=== PATIENT | male | born 1965 ===

== ENCOUNTER 2018-06-18 09:44 | Day surgery (SDC) | payer MEDICARE ==
[2018-02-25 18:39] VITALS: BMI 31.8
--- NOTE | 2018-06-18 11:06 | CP.SDSHP ---
Same Day Surgery H & P - History Proposed Procedure: colonoscopy Pre-Op Diagnosis: screening - Previous Medical/Surgical History Comments: HIV - Allergies Allergies: Allergies ciprofloxacin [From Cipro] Allergy (Verified 06/18/18 10:09) RASH ciprofloxacin HCl [From Cipro] Allergy (Verified 06/18/18 10:09) RASH Sulfa (Sulfonamide Antibiotics) Allergy (Verified 06/18/18 10:09) RASH - Physical Exam General Appearance: NAD Vital Signs: Vital Signs 06/18/18 10:00 Temperature 97.8 F Pulse Rate 58 L Respiratory 16 Rate Blood Pressure 139/86 O2 Sat by Pulse 97 Oximetry Mental Status: Alert & Oriented x3 Neuro: WNL Heart: WNL Lungs: WNL GI: WNL - {Optional Preform as Required} Abdomen: WNL - Impression Pt. Evaluated Today:Candidate for Anesthesia & Procedure: Yes - Date & Time Date: 06/18/18 Time: 11:05 Short Stay Discharge - Short Stay Discharge Admitting Diagnosis/Reason for Visit: SCREENING Disposition: HOME/ ROUTINE
[2018-06-18] MEDS ORDERED: Midazolam 2 MG/2 ML VIAL ONE (11:14)
[2018-06-18] MEDS ORDERED: Propofol 10 mg/ml Inj (20 ML) ONE (11:15)
[2018-06-18] MEDS ORDERED: Lactated Ringer's 500 ML IV ONE (11:45)
[2018-06-18 12:10] VITALS: TEMP 97.6
[2018-06-18 12:16] VITALS: O2SAT 100
[2018-06-18 15:09] VITALS: BP 135/67; PULSE 62; RESP 13
== END 2018-06-18 15:05 | disposition home or self-care (01) ==
LOC: C.ENDO 09:44
PROVIDERS: ATTEND Internal Medicine Gastroenterology
DX: Z12.11 Encounter for screening for malignant neoplasm of colon (principal); D12.4 Benign neoplasm of descending colon; D12.3 Benign neoplasm of transverse colon
CPT/HCPCS: 45380; 88305; J2250; J2704; J7120

== ENCOUNTER 2018-11-26 09:02 | Day surgery (SDC) | payer MEDICARE ==
[2018-09-30 07:59] VITALS: BMI 31.8
[2018-11-26] MEDS ORDERED: Lactated Ringer's 500 ML IV ONE ×2 (11:56)
--- NOTE | 2018-11-26 11:56 | CP.SDSHP ---
Same Day Surgery H & P - History Proposed Procedure: colonoscopy Pre-Op Diagnosis: history of colon polyps - Previous Medical/Surgical History Cardiac: Hypertension Comments: HIV - Allergies Allergies: Allergies ciprofloxacin [From Cipro] Allergy (Verified 09/30/18 07:59) RASH ciprofloxacin HCl [From Cipro] Allergy (Verified 09/30/18 07:59) RASH Sulfa (Sulfonamide Antibiotics) Allergy (Verified 09/30/18 07:59) RASH sulfamethoxazole [From Bactrim] Allergy (Verified 09/30/18 07:59) RASH trimethoprim [From Bactrim] Allergy (Verified 09/30/18 07:59) RASH - Physical Exam General Appearance: NAD Vital Signs: Vital Signs 11/26/18 09:33 Temperature 100.2 F H Pulse Rate 94 H Respiratory 20 Rate Blood Pressure 145/87 O2 Sat by Pulse 97 Oximetry Mental Status: Alert & Oriented x3 Neuro: WNL Heart: WNL Lungs: WNL GI: WNL - {Optional Preform as Required} Abdomen: WNL - Impression Pt. Evaluated Today:Candidate for Anesthesia & Procedure: Yes - Date & Time Date: 11/26/18 Time: 11:56 Short Stay Discharge - Short Stay Discharge Admitting Diagnosis/Reason for Visit: SCREENING Disposition: HOME/ ROUTINE Referrals: Graham Kat MD [Primary Care Provider] -
[2018-11-26] MEDS ORDERED: Propofol 10 mg/ml Inj (20 ML) ONE ×3 (11:59→12:44)
[2018-11-26] MEDS ORDERED: Lidocaine Hydrochloride 5 ML INJ ONE (11:59)
[2018-11-26] MEDS ORDERED: Midazolam 2 MG/2 ML VIAL ONE (11:59)
[2018-11-26 13:05] VITALS: O2SAT 100
[2018-11-26 13:32] VITALS: RESP 14; TEMP 98.4
[2018-11-26 14:22] VITALS: BP 119/82; PULSE 82
== END 2018-11-26 14:10 | disposition home or self-care (01) ==
LOC: C.ENDO 09:02
PROVIDERS: ATTEND Internal Medicine Gastroenterology
DX: D12.2 Benign neoplasm of ascending colon (principal); Z12.11 Encounter for screening for malignant neoplasm of colon; D12.5 Benign neoplasm of sigmoid colon; D12.4 Benign neoplasm of descending colon; K64.1 Second degree hemorrhoids; I10 Essential (primary) hypertension; Z21 Asymptomatic human immunodeficiency virus [HIV] infection status
CPT/HCPCS: 45381; 45384; 45385; 88305; J2250; J2704; J7120